=== PATIENT | female | born 1985 | race Caucasian/White ===

== ENCOUNTER 2016-07-01 18:09 | Inpatient (IN) | payer OTHER ==
[2016-07-01] MEDS ORDERED: OXYTOCIN/RINGERS LACTATE 1,000 ML IV PRN (18:19)
[2016-07-01] MEDS ORDERED: TERBUTALINE SULFATE 1 MG/ML VIAL IV PRN (18:19)
[2016-07-01] MEDS ORDERED: EPSOM SALT 454 GM TP PRN (18:19)
[2016-07-01] MEDS ORDERED: LR 1,000 ML IV PRN (18:19)
[2016-07-01] MEDS ORDERED: OLIVE OIL 118 ML BTL MISC PRN (18:19)
[2016-07-01] MEDS ORDERED: LIDOCAINE 1% 30 ML SDV SC PRN (18:19)
[2016-07-01] MEDS ORDERED: BUPIVACAINE 0.25% 30 ML SDV ONE (18:35)
[2016-07-01] MEDS ORDERED: PHENYLEPHRINE HCL 100 MCG/ML SYR ONE (18:35)
[2016-07-01] MEDS ORDERED: fentaNYL 2MCG/ML/BUP 0.1% RTU 100 ML BAG EP ONE (18:35)
[2016-07-01 18:45] LABS: % IMMATURE GRANULYOCYTES 0.6 % (0.0-1.1); ABSOLUTE IMMATURE GRANULOCYTES 0.08 10^3/uL (0.00-0.10); ADD DIFF? NO; ADD MORPH? NO; ADD SCAN? NO; ATYPICAL LYMPHOCYTE FLAG 0 (0-99); FRAGMENT RBC FLAG 0 (0-99); HEMATOCRIT 43.4 % (38.0-47.0); LEFT SHIFT FLG 0 (0-99); LIPEMIA HEMOLYSIS FLAG 90 (0-99); MEAN CELL HEMOGLOBIN 32.3 pg (27.9-34.1); MEAN CELL HEMOGLOBIN CONCENTR. 34.6 g/dL (32.4-36.7); MEAN CELL VOLUME 93.3 fL (81.5-99.8); MEAN PLATELET VOLUME 12.2 fL (8.7-11.7); PLATELET CLUMPS FLAG 10 (0-99); PLATELET COUNT 151 10^3/uL (150-400); RED BLOOD CELL COUNT 4.65 10^6/uL (4.18-5.33); RED CELL DISTRIBUTION WIDTH 13.2 % (11.5-15.2)
[2016-07-01] MEDS ORDERED: AMMONIA AROMATIC 1 EACH AMP IH ONE (18:58)
[2016-07-01] MEDS ORDERED: LIDOCAINE 1% 30 ML SDV ONE (18:58)
[2016-07-01] MEDS ORDERED: OLIVE OIL 118 ML BTL ONE (18:58)
[2016-07-01] MEDS ORDERED: TERBUTALINE SULFATE 1 MG/ML VIAL ONE (18:58)
[2016-07-01] MEDS ORDERED: MISOPROSTOL 200 MCG TAB ONE (18:59)
[2016-07-01] MEDS ORDERED: OXYTOCIN 10 UNIT/ML VIAL ONE (18:59)
[2016-07-01] MEDS ORDERED: ONDANSETRON 4 MG/2 ML VIAL IVP PRN (19:45)
[2016-07-01] MEDS ORDERED: PHENYLEPHRINE HCL 100 MCG/ML SYR IVP PRN (19:45)
--- NOTE | 2016-07-01 19:49 | PREANESOB ---
Obstetric Pre-Anesthesia Info - General Info NPO Start Time: 18:30 : 3 Para: 0 - Info Status: Full Term FHR Pattern: Reassuring - Labor Status Cervical Dilation per last OB SVE: 5 PIH: No Magnesium Sulfate in Use: No Indications for Labor Analgesia: Pain Control Labor Epidural: Yes Anesthesia Allergies/Adverse Reactions: Allergy/AdvReac Type Severity Reaction Status Date / Time Sulfa (Sulfonamide Allergy Rash Verified 03/29/13 03:38 Antibiotics) Home Medications: Medication Instructions Recorded Iron 03/29/13 Levoxyl 03/29/13 03/29/13 Zantac 03/29/13 Visit Medications: Generic Name Dose Route Start Last Admin Trade Name Freq PRN Reason Stop Dose Admin Lactated Ringer's 1,000 mls @ 0 mls/hr 07/01/16 18:19 Lr IV 12/28/16 18:18 PRN PRN SEE PROTOCOL CONDITIONS Protocol Per Protocol Oxytocin/Lactated Ringer's 1,000 mls @ 150 mls/hr 07/01/16 18:19 Pitocin 20 Units/Lr (Premix) IV PRN PRN Post- bleeding Ibuprofen 600 mg 07/01/16 18:19 Motrin PO 12/28/16 18:18 Q6HRS PRN post , inflammation Lidocaine HCl 30 ml 07/01/16 18:19 Lidocaine Hcl 1% SC 12/28/16 18:18 ONCE PRN Episiotomy Magnesium Sulfate 454 gm 07/01/16 18:19 Epsom Salt TP 12/28/16 18:18 PRN PRN perineal discomfort [place] Oil 118 ml 07/01/16 18:19 Sweet Oil MISC 12/28/16 18:18 ONCE PRN preneal massage Terbutaline Sulfate 0.25 mg 07/01/16 18:19 Brethine IV 12/28/16 18:18 ONCE PRN Tachysystole Discontinued Medications Generic Name Dose Route Start Last Admin Trade Name Freq PRN Reason Stop Dose Admin Ammonia (Aromatic Spirit) Confirm 07/01/16 18:58 Ammonia Aromatic Administered 07/01/16 18:59 Dose 1 each IH .STK-MED ONE Bupivacaine HCl Confirm 07/01/16 18:35 Sensorcaine 0.25% Sdv Administered 07/01/16 18:36 Dose 30 ml .ROUTE .STK-MED ONE Ephedrine Sulfate Confirm 07/01/16 18:58 Ephedrine Sulfate Administered 07/01/16 18:59 Dose 50 mg .ROUTE .STK-MED ONE Fentanyl/Bupivacaine HCl Confirm 07/01/16 18:35 Fentanyl/Bupivacaine/Ns 2 Mcg/Ml 0.1% (Premix Administered 07/01/16 18:36 Dose 100 ml EP .STK-MED ONE Lidocaine HCl Confirm 07/01/16 18:58 Lidocaine Hcl 1% Administered 07/01/16 18:59 Dose 30 ml .ROUTE .STK-MED ONE Misoprostol Confirm 07/01/16 18:59 Cytotec Administered 07/01/16 19:00 Dose 800 mcg .ROUTE .STK-MED ONE [place] Oil Confirm 07/01/16 18:58 Sweet Oil Administered 07/01/16 18:59 Dose 118 ml .ROUTE .STK-MED ONE Oxytocin Confirm 07/01/16 18:59 Pitocin Administered 07/01/16 19:00 Dose 40 unit .ROUTE .STK-MED ONE Phenylephrine HCl Confirm 07/01/16 18:35 Yohan-Synephrine Administered 07/01/16 18:36 Dose 1,000 mcg .ROUTE .STK-MED ONE Terbutaline Sulfate Confirm 07/01/16 18:58 Brethine Administered 07/01/16 18:59 Dose 1 mg .ROUTE .STK-MED ONE - Anesthesia History Response to Local Anesthetics: Normal Anesthesia & Operative History: No Prior Problems Family Anesthesia History: Negative - Social History Substance Use/Abuse: Denies - Focused Exam Blood Pressure: 109/73 Heart Rate: 63 Respiratory Rate: 17 Height/Weight (Nursing): Height 162.56 cm Weight 77.111 kg Weight: 67 kg Airway: FROM//nL dent Respiratory: chest non-tender Cardiovascular: regular rate, rhythm ASA Status: II Labs: 07/01/16 18:25 Patient ABO/Rh A POSITIVE 07/01/16 18:25 - Plan Consent Signed and on Chart: Yes Patient/Guardian Understands and Agrees to Plan: Yes
[2016-07-01] MEDS ORDERED: fentaNYL 2MCG/ML/BUP 0.1% RTU 100 ML EP SCH (20:00)
[2016-07-01] MEDS ORDERED: LR 500 ML IV SCH (20:00)
--- NOTE | 2016-07-01 20:34 | OBPROG ---
OBG Progress Note Assessment/Plan: Assessment: Pt is 30 y/o @ 38 3/7 wks who presents in active labor Plan: Continue expectant management Epidural in place FHTs - Cat I tracing AROM - small amount blood-tinged fluid noted Anticipate 07/01/16 20:32 Subjective: Pt is comfortable, s/p epidural. No complaints. Objective: 07/01/16 18:25 Patient ABO/Rh A POSITIVE 07/01/16 18:25 Temp Pulse Resp BP Pulse Ox 63 17 109/73 07/01/16 19:49 07/01/16 19:49 07/01/16 19:49 - SVE Dilation (cm): 8 Effacement (%): 100 Station: 0 Current Contraction Pattern: Regular FHR (bpm): 140 FHR Pattern Variability: Moderate FHR Category: 1 Membranes: AROM Amniotic Fluid Color: Blood Tinged ICD10 Worksheet Patient Problems: Problems Problem Status Onset Active labor at term Acute
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
[2016-07-01] MEDS ORDERED: IBUPROFEN 600 MG TAB PO PRN (23:00)
[2016-07-01] MEDS ORDERED: SIMETHICONE 80 MG TAB CHEW PO PRN (23:00)
[2016-07-01] MEDS ORDERED: HYDROCORTISONE 0.5% CREAM TP PRN (23:00)
--- NOTE | 2016-07-01 23:04 | OBPROC ---
- Labor and Delivery Onset of Contractions Date: 07/01/16 Onset of Contractions Time: 04:00 Onset of Contractions Type: Spontaneous Rupture of Membranes Date: 07/01/16 Rupture of Membranes Time: 20:15 Rupture of Membranes Type: Artificial Amniotic Fluid Color: Meconium Stained-Light Dilation Complete Time: 22:15 Delivery Type: Spontaneous Placenta Delivery Date: 07/01/16 Placenta Delivery Time: 22:50 Episiotomy/Laceration: Other (Specify) (None) EBL: 300 Complications: None - Medications Anesthesia: Epidural - [place] Info Infant A Delivery Date: 07/01/16 Delivery Time: 22:41 Sex of Infant: Female Score (1 Min): 8 Score (5 Min): 8
[2016-07-01] MEDS: IBUPROFEN 600 MG TAB PO PRN (23:11)
[2016-07-02] MEDS: IBUPROFEN 600 MG TAB PO PRN ×3 (05:32→19:39)
[2016-07-02] MEDS: DOCUSATE SODIUM 100 MG CAP PO PRN ×2 (09:03→19:38)
--- NOTE | 2016-07-02 09:22 | OBPROG ---
OBG Progress Note Assessment/Plan: Assessment: 30 y/o PPD #1 s/p doing well. Plan: consult to begin pumping. Routine PPC, and d/c home tomorrow. 07/02/16 09:22 Subjective: Pt is doing well today. She is feeling well, cramping controlled with Ibuprofen. She is ambulating and voiding without difficulty. Breast feeding is going well, but she would like to start pumping to increase her supply quicker. Objective: 07/01/16 18:25 Patient ABO/Rh A POSITIVE 07/01/16 18:25 Temp Pulse Resp BP Pulse Ox 36.4 C 54 L 16 100/66 100 07/02/16 04:15 07/02/16 04:15 07/02/16 04:15 07/02/16 04:15 07/02/16 04:15 Uterine Position/Fundal Height: Umbilicus -2 Uterine Tone: Firm - Physical Exam General Appearance: WD/WN, alert, no apparent distress Neck: non-tender, full range of motion, supple Respiratory: chest non-tender, lungs clear, normal breath sounds Cardiac/Chest: regular rate, rhythm Abdomen: normal bowel sounds Extremities: swelling (no), Mame's sign (neg) ICD10 Worksheet Patient Problems: Problems Problem Status Onset Active labor at term Acute
[2016-07-02] MEDS: HYDROCODONE/APAP 5/325 TAB PO PRN ×2 (09:23→16:03)
[2016-07-02 20:59] VITALS: BP 79/44; PULSE 61; RESP 18; TEMP 97; O2SAT 96
[2016-07-03] MEDS: IBUPROFEN 600 MG TAB PO PRN ×2 (04:03→10:39)
[2016-07-03] MEDS ORDERED: EPSOM SALT 454 GM TP ONE (09:03)
--- NOTE | 2016-07-03 10:16 | SOAPPROG ---
SOAP Progress Note Assessment/Plan: Assessment: 30y/o s/p , day #2 Plan: Routine PP care prior to discharge Anticipate d/c to home today 07/03 F/U in clinic @4 & 6wks 07/03/16 10:13 Subjective: Pt doing well, at bedside. Reports going well. Lochia light. Voiding without difficulty. Denies BM, +flatus. Denies feelings of depression/blues. Objective: Vital Signs Temp Pulse Resp BP Pulse Ox 36.1 C 61 18 79/44 L 96 07/02/16 20:45 07/02/16 20:45 07/02/16 20:45 07/02/16 20:45 07/02/16 20:45 Laboratory Results 07/01/16 18:25 Physical Exam - Physical Exam General Appearance: alert, no apparent distress Respiratory: lungs clear, normal breath sounds Cardiac/Chest: regular rate, rhythm, edema (+1 BLE edema) Abdomen: non-tender, soft, other (fundus firm @U-1) Skin: normal color, warm/dry Extremities: normal range of motion Neuro/Psych: alert, normal mood/affect, oriented x 3 ICD10 Worksheet Patient Problems: Problems Problem Status Onset Active labor at term Acute
[2016-07-03] MEDS: DOCUSATE SODIUM 100 MG CAP PO PRN (10:29)
== END 2016-07-03 11:30 | disposition home or self-care (01) | DRG 775 ==
LOC: OBSVTOIN 18:09 → FLD 18:09 → FOB 07-02 00:32
PROVIDERS: ADMIT Obstetrics & Gynecology; ATTEND Obstetrics & Gynecology
PROC: 10907ZC Drainage of Amniotic Fluid, Therapeutic from Products of Conception, Via Natural or Artificial Opening (ICD-10-PCS; principal; 2016-07-01)
PROC: 10E0XZZ Delivery of Products of Conception, External Approach (ICD-10-PCS; principal; 2016-07-01)
DX: O77.0 Labor and delivery complicated by meconium in amniotic fluid (principal); O99.282 Endocrine, nutritional and metabolic diseases complicating pregnancy, second trimester; E03.9 Hypothyroidism, unspecified; Z3A.38 38 weeks gestation of pregnancy; Z37.0 Single live birth
CPT/HCPCS: J2370; J2590; J3105